=== PATIENT | male | born 1950 | race Caucasian/White ===

== ENCOUNTER 2025-05-24 17:42 | Emergency (ER) | payer SELFPAY ==
[2025-05-24 17:43] VITALS: BP 160/80
[2025-05-24 21:15] VITALS: BP 145/76
[2025-05-24 22:28] LABS: Urine Character Clear (Clear)
[2025-05-24 22:39] LABS: Urine Red Blood Cell 0-2 /HPF (0-2); Urine Squamous Cell 0-2 /LPF (Few); Urine White Cell 0-2 /HPF (0-5)
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
[2025-05-24 23:54] VITALS: BP 149/80
== END 2025-05-24 23:55 | disposition home or self-care (01) ==
LOC: EMR 17:42
PROVIDERS: EMERGENCY PHYSICIAN Student in an Organized Health Care Education/Training Program; FAMILY PHYSICIAN Internal Medicine Geriatric Medicine
DX: Z04.1 Encounter for examination and observation following transport accident (principal); J45.909 Unspecified asthma, uncomplicated; I10 Essential (primary) hypertension; E78.00 Pure hypercholesterolemia, unspecified; Z94.0 Kidney transplant status; Z87.820 Personal history of traumatic brain injury
CPT/HCPCS: 99284; 70450; 72125; 81003; 81015

== ENCOUNTER → 2025-06-20 10:06 | Outpatient (REF) | payer OTHER, SELFPAY | LOC: HWRAD 10:06 | PROVIDERS: ATTENDING PHYSICIAN Internal Medicine | DX: R42 Dizziness and giddiness (principal) | CPT/HCPCS: 70450 ==

== ENCOUNTER → 2025-08-20 12:57 | Outpatient (REF) | payer MEDICARE, OTHER, SELFPAY | LOC: HWCARD 12:57 | PROVIDERS: ATTENDING PHYSICIAN Internal Medicine | DX: R06.09 Other forms of dyspnea (principal) | CPT/HCPCS: 93005 ==